=== PATIENT | female | born 1985 | race Two or more races ===

== ENCOUNTER 2025-02-10 14:57 | Emergency (ER) | payer OTHER ==
[~2025-02-10] VITALS: Ht 157.5 cm; Wt 56.2 kg
[2025-02-10] MEDS ORDERED: KETOROLAC TROMETHAMINE 30 MG VIAL IM ONE (17:45)
[2025-02-10 19:20] LABS: BASO % 1.0 % (0.1-1.2); EOS # 0.15 (0.04-0.54); EOS % 1.4 % (0.7-7.0); LYMPH # 3.93 (1.18-3.74); LYMPH % 37.6 % (19.3-53.1); MEAN PLATELET VOLUME 10.70 fl (9.4-12.4); MONO # 0.83 (0.24-0.82); MONO % 7.9 % (4.7-12.5); NEUT # 5.41 (1.56-6.13); NEUT % 51.8 % (34.0-71.1); RED CELL DISTRIBUTION WIDTH 12.7 % (11.6-14.4)
[2025-02-10 19:29] LABS: ERYTHROCYTE SEDIMENTATION RATE 17 mm/hr (0-20)
[2025-02-10 20:03] LABS: ALT/SGPT 16.0 U/L (12-78); AST/SGOT 15.0 U/L (15-37); BILIRUBIN TOTAL 0.3 mg/dL (0.3-1.2); BUN CREA RATIO 15.0 (7.0-25.0); CREATININE SERUM 0.65 mg/dL (0.55-1.02); GFR 102.01; GLOBULINA 3.9 G/DL (2.4-3.5); GLUCOSE FASTING 86.0 mg/dL (65-100); OSMOLALITY SERUM 283.0 MOSM/KG (275-295)
[2025-02-10] MEDS ORDERED: IBUPROFEN600 MG PO (20:22)
[2025-02-10] MEDS ORDERED: CEPHALEXIN500 MG PO (20:22)
== END 2025-02-10 20:28 | disposition home or self-care (01) ==
LOC: ER 14:58
PROVIDERS: Preventive Medicine Public Health & General Preventive Medicine
DX: L02.414 Cutaneous abscess of left upper limb (principal); Z87.09 Personal history of other diseases of the respiratory system